=== PATIENT | female | born 1990 | race Caucasian/White ===

== ENCOUNTER 2018-10-17 08:12 | Emergency (ER) | payer OTHER ==
[2018-10-17] MEDS ORDERED: Ibuprofen TAB* 600 MG PO ONE (08:21)
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
[2018-10-17 11:47] VITALS: BP 131/97
== END 2018-10-17 11:47 | disposition home or self-care (01) ==
LOC: ED 08:12
DX: S70.02XA Contusion of left hip, initial encounter (principal); S70.01XA Contusion of right hip, initial encounter; S00.211A Abrasion of right eyelid and periocular area, initial encounter; V48.5XXA Car driver injured in noncollision transport accident in traffic accident, initial encounter; Y92.410 Unspecified street and highway as the place of occurrence of the external cause; Z91.030 Bee allergy status; Z91.041 Radiographic dye allergy status
CPT/HCPCS: 72170; 99282; A9270-GY